=== PATIENT | male | born 1975 | race African-American/Black ===

== ENCOUNTER 2020-11-01 09:54 | Emergency (ER) | payer BC ==
[2020-11-01 10:20] VITALS: PULSE 54; RESP 18; TEMP 97.8
[2020-11-01 10:21] VITALS: BP 186/134
--- NOTE | 2020-11-01 11:07 | ED ---
Recheck HPI - General Source: patient Mode of arrival: ambulatory Limitations: no limitations <Anette Simon - Last Filed: 11/02/20 19:11> <Bharti Pena - Last Filed: 11/03/20 11:48> - General Chief Complaint: Recheck/Abnormal Lab/Rx Stated Complaint: wants covid test Time Seen by Provider: 11/01/20 10:57 - History of Present Illness Initial Comments: Patient is a 45-year-old male presenting to the emergency department requesting a Covid test. Patient states he is trying to return to [place] and they're requiring a test for entry. He denies having any symptoms at this time. He has no fever or chills, no chest pressures of breath. He has no complaints at this time. Upon arrival to the ER, he is hypertensive at 186/134. He states he normally has a little elevated blood pressure, he does not take medication for. He states [place] is also very [place] (Anette Simon) - Related Data Allergies Allergy/AdvReac Type Severity Reaction Status Date / Time No Known Allergies Allergy Verified 11/01/20 10:20 Review of Systems ROS Other: All systems not noted in ROS Statement are negative. <Anette Simon - Last Filed: 11/02/20 19:11> ROS Other: All systems not noted in ROS Statement are negative. <Bharti Pena - Last Filed: 11/03/20 11:48> ROS Statement: Those systems with pertinent positive or pertinent negative responses have been documented in the HPI. Past Medical History Past Medical History: No Reported History History of Any Multi-Drug Resistant Organisms: None Reported Additional Past Surgical History / Comment(s): left hand surgey Past Psychological History: No Psychological Hx Reported Smoking Status: Never smoker Past Alcohol Use History: None Reported Past Drug Use History: None Reported <Anette Simon - Last Filed: 11/02/20 19:11> General Exam Limitations: no limitations <Anette Simon - Last Filed: 11/02/20 19:11> - General Exam Comments Initial Comments: GENERAL: Patient is well-developed and well-nourished. Patient is nontoxic and in no acute distress. HEAD: Atraumatic, normocephalic. EYES: Pupils equal round and reactive to light, extraocular movements intact, sclera anicteric, conjunctiva are normal. Eyelids were unremarkable. ENT: Nares patent, oropharynx clear without exudates. Moist mucous membranes. NECK: Normal range of motion, supple without lymphadenopathy or JVD. LUNGS: Unlabored respirations. Breath sounds clear to auscultation bilaterally and equal. No wheezes rales or rhonchi. HEART: Regular rate and rhythm without murmurs, rubs or gallops. ABDOMEN: Soft, nontender, normoactive bowel sounds. No guarding, no rebound. No masses appreciated. : Deferred MUSCULOSKELETAL: Normal extremities with adequate strength and normal range of motion, no pitting or edema. No clubbing or cyanosis. NEUROLOGICAL: Patient is alert and oriented x 3. Motor and sensory are also intact. Cranial nerves II through XII grossly intact. Symmetrical smile. Normal speech, normal gait. PSYCH: Normal mood, normal affect. SKIN: Warm, Dry, normal turgor, no rashes or lesions noted. (Anette Simon) Course Vital Signs 11/01/20 10:16 Temperature 97.8 F Pulse Rate 54 L Respiratory 18 Rate Blood Pressure 186/134 O2 Sat by Pulse 100 Oximetry Medical Decision Making <Anette Simon - Last Filed: 11/02/20 19:11> <Bharti Pena - Last Filed: 11/03/20 11:48> - Medical Decision Making Patient is a 45-year-old male here requesting a Covid test for reentry back to [place]. He is asymptomatic, his exam is unremarkable. He is slightly hypertensive here for over states he is very stressed right now and knows he sometimes has elevated blood pressure. Does not take medicine for this. He will follow up with his doctor regarding the blood pressure. His rapid Covid is negative. Patient is stable for discharge. Case discussed with Dr. Pena. (Anette Simon) I was available for consultation in the emergency department. The history and physical exam were done by the midlevel provider. I was consulted for this patients care. I reviewed the case with the midlevel provider and based on their presentation of the patient, I agree with the assessment, medical decision making and plan of care as documented. Chart was dictated using [employer] dictation software. Attempts were made to correct any dictation errors however some typographical errors may persist. Patient was seen during a national state of emergency due to the Covid-19 pandemic. (Bharti Pena) - Lab Data Lab Results 11/01/20 Range/Units 10:20 Coronavirus (PCR) Not Detected (Not Detectd) Disposition Is patient prescribed a controlled substance at d/c from ED?: No <Anette Simon - Last Filed: 11/02/20 19:11> <Bharti Pena - Last Filed: 11/03/20 11:48> Clinical Impression: Encounter for laboratory testing for COVID-19 virus Disposition: HOME SELF-CARE Condition: Stable Instructions (If sedation given, give patient instructions): Normal Exam (ED) Additional Instructions: Please return to the Emergency Department if symptoms worsen or any other concerns. Rapid Covid test is negative. Follow-up with your family doctor regarding high blood pressure. Referrals: None,Stated [Primary Care Provider] - 1-2 days
== END 2020-11-01 11:29 | disposition home or self-care (01) ==
LOC: EC 09:54
DX: Z11.59 Encounter for screening for other viral diseases (principal); Z20.822 Contact with and (suspected) exposure to COVID-19
CPT/HCPCS: 87635; 99283

== ENCOUNTER 2021-02-14 19:30 | Emergency (ER) | payer BC ==
[2021-02-14 19:40] VITALS: TEMP 98.6
--- NOTE | 2021-02-14 20:04 | ED ---
General Adult HPI - General Source: patient Mode of arrival: ambulatory Limitations: no limitations <Travon Sheth - Last Filed: 02/14/21 20:50> <Bharti Pena - Last Filed: 02/15/21 01:06> - General Chief complaint: Recheck/Abnormal Lab/Rx Stated complaint: COVID Test Time Seen by Provider: 02/14/21 19:41 - History of Present Illness Initial comments: 45-year-old male presents to the emergency room for a chief complaint of needing covid test. Patient is from [place] and is driving to [place]. [place] not [place] a negative covid test and sent to the ER. Patient denies any symptoms or exposures. Patient denies any complaints whatsoever.Patient has no other complaints at this time including shortness of breath, chest pain, abdominal pain, nausea or vomiting, headache, or visual changes. (Travon Sheth) - Related Data Allergies Allergy/AdvReac Type Severity Reaction Status Date / Time No Known Allergies Allergy Verified 02/14/21 19:40 Review of Systems ROS Other: All systems not noted in ROS Statement are negative. <Travon Sheth - Last Filed: 02/14/21 20:50> ROS Other: All systems not noted in ROS Statement are negative. <Bharti Pena - Last Filed: 02/15/21 01:06> ROS Statement: Those systems with pertinent positive or pertinent negative responses have been documented in the HPI. Past Medical History Past Medical History: No Reported History History of Any Multi-Drug Resistant Organisms: None Reported Additional Past Surgical History / Comment(s): left hand surgey Past Psychological History: No Psychological Hx Reported Smoking Status: Never smoker Past Alcohol Use History: None Reported Past Drug Use History: None Reported <Travon Sheth - Last Filed: 02/14/21 20:50> General Exam Limitations: no limitations General appearance: alert Head exam: Present: atraumatic Eye exam: Present: normal appearance, PERRL, EOMI. Absent: scleral icterus ENT exam: Present: normal exam, mucous membranes moist Neck exam: Present: normal inspection, full ROM Respiratory exam: Present: normal lung sounds bilaterally. Absent: respiratory distress, wheezes Cardiovascular Exam: Present: regular rate, normal rhythm, normal heart sounds Neurological exam: Present: alert <Travon Sheth - Last Filed: 02/14/21 20:50> Course Vital Signs 02/14/21 02/14/21 19:36 20:43 Temperature 98.6 F Pulse Rate 49 L 52 L Respiratory 18 12 Rate Blood Pressure 193/111 164/100 O2 Sat by Pulse 98 100 Oximetry Medical Decision Making <Travon Sheth - Last Filed: 02/14/21 20:50> <Bharti Pena - Last Filed: 02/15/21 01:06> - Medical Decision Making Patient presents initially tachycardic. States he is stressed and [place] He has been driving all day from [place] and drinking coffee. Patient states has a history of high blood pressure but his doctor has been keeping an eye on it without medications. Patient denies any symptoms but does need a Covid test. This was performed and is negative. Blood pressure repeated and improved significantly. However he will follow-up with his doctor to repeat this. He will return here for any worsening symptoms. (Travon Sheth) I was available for consultation in the emergency department. The history and physical exam were done by the midlevel provider. I was consulted for this patients care. I reviewed the case with the midlevel provider and based on their presentation of the patient, I agree with the assessment, medical decision making and plan of care as documented. Chart was dictated using [employer] dictation software. Attempts were made to correct any dictation errors however some typographical errors may persist. (Bharti Pena) - Lab Data Lab Results 02/14/21 Range/Units 19:51 Coronavirus (PCR) Not Detected (Not Detectd) Disposition Is patient prescribed a controlled substance at d/c from ED?: No Time of Disposition: 20:47 <Travon Sheth - Last Filed: 02/14/21 20:50> <Bharti Pena - Last Filed: 02/15/21 01:06> Clinical Impression: Lab test negative for COVID-19 virus Disposition: HOME SELF-CARE Condition: Good Instructions (If sedation given, give patient instructions): Coronavirus Disease 2019 (COVID-19) Additional Instructions: Please follow-up with your doctor to repeat your blood pressure. Return to the emergency room for any worsening symptoms. Referrals: Clyde Conte MD [STAFF PHYSICIAN] - 1-2 days
[2021-02-14 20:44] VITALS: BP 164/100; PULSE 52; RESP 12
== END 2021-02-14 20:53 | disposition home or self-care (01) ==
LOC: EC 19:30
DX: Z20.822 Contact with and (suspected) exposure to COVID-19 (principal)
CPT/HCPCS: 87635; 99282